=== PATIENT | male | born 1985 | race Caucasian/White ===

== ENCOUNTER 2017-11-06 02:40 | Emergency (ER) | payer SELFPAY ==
[~2017-11-06] VITALS: Ht 175.3 cm; Wt 83.5 kg
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
--- NOTE | 2017-11-06 02:41 | NUR ---
ER MD IGNACIO AT BEDSIDE
[2017-11-06] MEDS ORDERED: DEXAMETHASONE SOD PHOSPHATE 4 MG/ML VIAL IM ONE (03:00)
[2017-11-06] MEDS ORDERED: KETOROLAC TROMETHAMINE INJ 60 MG/2 ML VIAL IM ONE ×2 (03:00→03:06)
[2017-11-06] MEDS ORDERED: DEXAMETHASONE SOD PHOSPHATE 10 MG/ML VIAL ONE (03:06)
--- NOTE | 2017-11-06 03:19 | NUR ---
PT OFF TO CT
--- NOTE | 2017-11-06 03:22 | NUR ---
PD AT BEDSIDE FOR EVAL
--- NOTE | 2017-11-06 03:28 | NUR ---
PT BACK FROM CT
[2017-11-06 04:07] VITALS: BP 161/100
== END 2017-11-06 04:07 | disposition home or self-care (01) ==
LOC: ER 02:42
DX: S16.1XXA Strain of muscle, fascia and tendon at neck level, initial encounter (principal); S09.8XXA Other specified injuries of head, initial encounter; M54.5 Low back pain; V49.59XA Passenger injured in collision with other motor vehicles in traffic accident, initial encounter; Y93.89 Activity, other specified; Y92.413 State road as the place of occurrence of the external cause; Y99.8 Other external cause status
CPT/HCPCS: 70450; 72100; 72125; 96372 ×2; 99284; A4606; J1100; J1885; L0172; Z7610